=== PATIENT | female | born 1960 | race Caucasian/White ===

== ENCOUNTER → 2019-08-22 13:58 | Outpatient (CLI) | payer OTHER, SELFPAY ==
--- NOTE | 2019-08-22 14:12 | VDLE_ITS ---
Reason For Study: LLE pain RIGHT LEFT CFV is compressible, spontaneous, phasic, GSV is normal. competent and demonstrates normal CFV is compressible, spontaneous, phasic, augmentation. competent, and demonstrates normal Procedure augmentation. Exam performed in department. FV is compressible, spontaneous, phasic, The exam was diagnostic. competent and demonstrates normal A preliminary report was called and/or faxed augmentation. to Dr. Cooper @ 2:35 pm @ [phone]. POP V is compressible, spontaneous, phasic, competent and demonstrates normal augmentation. T/P Trunk is compressible. PTV is compressible. LT PerV is compressible. Interpretation Summary Deep veins of the left lower extremity are patent and compressible segmentally. There is no evidence of left lower extremity deep vein thrombosis. Valvular competence appears intact within the proximal deep venous system on the left . The left great saphenous vein appears patent and compressible segmentally. Ordering Physician: Molina Cooper Referring Physician: Molina Cooper Performed By: Lily Moser, RAD, RVT
== END ==
PROVIDERS: PCP Family Medicine; Referring Provider Family Medicine; Visit Provider Family Medicine
DX: M79.606 Pain in leg, unspecified (principal)
CPT/HCPCS: 93971

== ENCOUNTER → 2019-09-06 12:17 | Outpatient (CLI) | payer OTHER, SELFPAY ==
--- NOTE | 2019-09-06 12:20 | US_ITS ---
STUDY: THYROID ULTRASOUND REASON FOR EXAM: Female, 59 years old. THYROMEGALY TECHNIQUE: Ultrasound evaluation of the thyroid was performed with real-time and static dwyer-scale imaging. COMPARISON: None. FINDINGS: RIGHT LOBE: The right lobe of the thyroid gland measures 5.0 x 1.7 x 1.6 cm. There is a homogeneous echotexture. 4 mm colloid cyst in the right lobe. LEFT LOBE: The left lobe of the thyroid gland measures 4.5 x 1.5 x 1.6 cm. There is a homogeneous echotexture. 5 mm colloid cyst in the left lobe. ISTHMUS: The isthmus measures 3 mm thick. . The regional lymph nodes are normal. US/Thyroid IMPRESSION: Normal ultrasound examination of the thyroid. Electronically Signed: Giovani Diggs MD at 10:11 EST Tel , Service support ,
--- NOTE | 2019-09-06 12:44 | ECHOD_ITS ---
Reason For Study: MURMUR Procedure This was a 2D Doppler, Color Flow transthoracic echocardiogram. Exam performed in department. Left Ventricle Normal LV size. The estimated ejection fraction is 65 %. No evidence for diastolic dysfunction. No regional wall motion abnormalities noted. Right Ventricle Normal RV size. Normal systolic function. Atria Normal left atrium. Normal right atrium. No doppler evidence for ASD. Mitral Valve There is no mitral valve stenosis. No mitral valve insufficiency. Tricuspid Valve There is no tricuspid stenosis. Trivial tricuspid valve insufficiency. Pulmonary artery systolic pressure is 30 mmHg. Aortic Valve Trisinus/trileaflet aortic valve. Mild aortic stenosis. No aortic valve insufficiency. Pulmonic Valve There is no pulmonic valvular stenosis. No pulmonic valve insufficiency. Great Vessels Normal aortic root. Pericardium/Pleural No pericardial effusion. MMode/2D Measurements & Calculations LVIDd: 4.9 cm IVSd: 1.1 cm LVOT diam: 2.0 cm LVIDs: 3.1 cm LVPWd: 1.1 cm LVOT area: 3.1 cm2 RVDd: 3.0 cm FS: 36.2 % Ao root diam: 2.9 cm LAV(MOD-bp): 60.9 ml LA A4 area: 19.9 cm2 LAV(MOD-bp) Indexed: 29.4 ml/m2 LAV(MOD-sp2): 56.4 ml LAV(MOD-sp4): 56.4 ml LA dimension(2D): 3.7 cm RA A4 area: 15.7 cm2 Time Measurements MV dec time: 0.19 sec Doppler Measurements & Calculations MV E max ian: 89.1 cm/sec Lat Peak E' Ian: 8.3 cm/sec Med Peak E' Ian: 7.1 cm/sec MV A max ian: 102.5 cm/sec E/E' lat: 10.7 E/E' med: 12.5 MV E/A: 0.87 Ao V2 max: 218.4 cm/sec LV V1 max: 122.0 cm/sec SV(LVOT): 95.0 ml Ao max P.1 mmHg LV V1 max P.0 mmHg Ao V2 mean: 152.2 cm/sec LV V1 mean P.4 mmHg Ao mean P.2 mmHg LV V1 mean: 87.9 cm/sec Ao V2 VTI: 46.3 cm LV V1 VTI: 30.6 cm ABDIRAHMAN(I,D): 2.1 cm2 ABDIRAHMAN(V,D): 1.7 cm2 PA V2 max: 115.8 cm/sec TR max ian: 261.8 cm/sec TR max P.4 mmHg Interpretation Summary The estimated ejection fraction is 65 %. No evidence for diastolic dysfunction. Trivial tricuspid valve insufficiency. Mild aortic stenosis. Ordering Physician: Molina Cooper Referring Physician: Molina Cooper Performed By: Lily Moser, RAD, RVT
== END ==
PROVIDERS: PCP Family Medicine; Referring Provider Family Medicine; Visit Provider Family Medicine
DX: E04.9 Nontoxic goiter, unspecified (principal); R01.1 Cardiac murmur, unspecified
CPT/HCPCS: 76536; 93306

== ENCOUNTER → 2019-12-27 09:54 | Outpatient (CLI) | payer OTHER, SELFPAY ==
[2019-11-30 09:14] VITALS: BMI 37.3
[2019-12-27 12:34] LABS: Absolute Lymphocyte Count 2.11 X10^3/uL (0.83-4.51); Absolute Neutrophil Count 2.3 X10^3/uL (2.0-7.7); Basophil# 0.08 X10^3/uL; Basophil% 1.6 % (0-1); Eosinophil# 0.13 X10^3/uL; Eosinophils% 2.6 % (0-5); Hematocrit 47.6 % (37-47); Hemoglobin 15.9 g/dL (12.0-15.0); Lymphocyte # 2.11 X10^3/ul (4.0); Lymphocyte % 42.2 % (19-41); Mean Corp Hgb Conc 33.4 g/dL (32-36); Mean Corpuscular Hgb 31.5 pg (27.0-32.0); Mean Corpuscular Volume 94.3 fL (81-99); Mean Platelet Vol. 10.9 fl (6.2-12.0); Monocyte# 0.41 X10^3/uL; Monocyte% 8.2 % (0-10); NRBC Flagged by Analyzer 0 % (0-5); Neutrophil # 2.26 X10^3/uL (2.7-7.7); Neutrophil % 45.2 % (47-70); Platelet Count 263 K/mm3 (150-450); RBC Distribution Width CV 12.6 % (11.6-14.6); RBC Distribution Width SD 43.6 fl (35.1-43.9); Red Blood Count 5.05 M/mm3 (4.2-5.4)
[2019-12-27 13:02] LABS: ALB/GLOB Ratio 1.2 RATIO (0.9-2.4); AST(SGOT) 90 U/L (15-37); Alanine Aminotransfer ALT/SGPT 80 U/L (13-56); Alkaline Phosphatase 62 U/L (45-117); Anion Gap 6 (5-15); BUN 8 mg/dL (7-18); BUN/Creat Ratio 10.7 RATIO (10-20); Calcium,Total 8.9 mg/dL (8.5-10.1); Chloride 109 mmol/L (98-107); Cholesterol 134 mg/dL (200); Creatinine, Serum 0.75 mg/dL (0.55-1.02); EST Glomerular Filtration Rate 83 mL/min (>60); Est Glom Filt Rate - Afr Amer 101 mL/min (>60); Globulin 3.3 g/dL (2.2-4.2); Glucose 96 mg/dL (74-106); High Density Lipoprotein 39 mg/dL; Potassium 4.4 mmol/L (3.5-5.1); Protein, Total 7.3 g/dL (6.4-8.2); Sodium Level 143 mmol/L (136-145); T4 Free Direct 1.09 ng/dL (0.76-1.46); Thyroid Stim Hormone (TSH) 1.37 uIU/mL (0.358-3.74); Triglycerides 145 mg/dL; Very Low Density Lipoprotein 29 mg/dL (5-40)
== END ==
PROVIDERS: PCP Family Medicine; Referring Provider Family Medicine; Visit Provider Family Medicine
DX: E78.5 Hyperlipidemia, unspecified (principal); E04.1 Nontoxic single thyroid nodule; K21.9 Gastro-esophageal reflux disease without esophagitis
CPT/HCPCS: 36415; 80053; 80061; 84439; 84443; 85025

== ENCOUNTER 2019-12-28 06:56 | Day surgery (SDC) | payer OTHER, SELFPAY ==
[2019-11-30 09:14] VITALS: BMI 37.3
--- NOTE | 2019-11-30 09:48 | HP_ITS ---
ADDENDUM by Dr. Nj Mathur MD on 11/30/19 at 1036 Addendum entered and electronically signed by Nj Mathur MD 11/30/19 10:36: I now have records from [facility]. Dr. Janie Arguello. Colonoscopy March 08, 2012. Approximately 15 cm from the cecum small sessile polyp identified behind a fold. Was not able to actually sampled the area. Could not adequately cauterized the tissue. On March 28, 2014 a repeat attempt was made. This was an incomplete colonoscopy. Very tortuous colon. Preparation of the right colon was poor. No polyp could be easily seen. With a distant additional information will provide additional bowel prep with magnesium citrate 1 bottle to be taken 2 days preprocedure into the already prescribed bowel prep. Nj Mathur M.D., F.A.C.S. Intake Chief Complaint: c-scope/GERD Allergies aspirin Allergy (Severe, Verified 11/30/19 09:15) Anaphylaxis Medications atorvastatin 20 mg tablet 20 mg PO DAILY 11/30/19 [History Confirmed 11/30/19] ezetimibe 10 mg tablet 10 mg PO DAILY 11/30/19 [History Confirmed 11/30/19] famotidine 20 mg tablet 20 mg PO BID 11/30/19 [History Confirmed 11/30/19] omega-3 fatty acids 1,000 mg capsule 1,000 mg PO BID 11/30/19 [History Confirmed 11/30/19] Assessment & Plan Problems 1. Gastroesophageal reflux disease, esophagitis presence not specified K21.9 2. Personal history of colonic polyps Z86.010 Plan - Dr. Nj Mathur MD 59-year-old female with a long-term history of 20 years of GERD with no previous upper endoscopy. I recommend to her a esophagogastroduodenoscopy with possible biopsy or polypectomy as indicated. She is aware of the technique, benefit, risk, alternatives. She has had an opportunity to ask and have questions answered. Patient with a previous history of colon polyps. She states that she is known to have a difficult colonoscopy. Most recent exam 2013. She is not currently symptomatic. I recommend to her a colonoscopy with possible biopsy or polypectomy as indicated. She is aware of the technique, benefit, risk of alternatives. If she has a difficult colonoscopy I additionally discussed potential maneuvers including monitor anesthesia care that will be utilized. In addition we discussed the Covid-19 pandemic. The [facility] administration has suggested that there is a low incidence locally. The patient is aware of the risk with intervention during this time. She has had an opportunity to ask and have questions answered. She would like to schedule and proceed as noted. Cc: Dr Molina Mathur M.D., F.A.C.S. Orders Orders: Colonoscopy Today EGD Today 11/30/19 1036 <Electronically signed by Nj martel MD> Date _ Nj Mathur MD cc: Dr. Molina Cooper MD ~* Signed Intake Vital Signs 11/30/19 Height 5 ft 5 in 11/30/19 Weight: 224 lb 6 oz 11/30/19 BMI 37.3 11/30/19 BP 149/82 H 11/30/19 Blood Pressure Location Rt brachial 11/30/19 Position Sitting 11/30/19 Respiration 18 11/30/19 Pulse 67 11/30/19 Pulse Source Monitor 11/30/19 Temp 97.6 F L 11/30/19 Temp Source Oral 11/30/19 Pulse Oximetry (%) 96 11/30/19 Oxygen Delivery Method room air Intake Visit Reasons: CSCOPE and GERD Chief Complaint: c-scope/GERD [employer] Required: No Is patient in pain?: No Allergies aspirin Allergy (Severe, Verified 11/30/19 09:15) Anaphylaxis Medications atorvastatin 20 mg tablet 20 mg PO DAILY 11/30/19 [History Confirmed 11/30/19] ezetimibe 10 mg tablet 10 mg PO DAILY 11/30/19 [History Confirmed 11/30/19] famotidine 20 mg tablet 20 mg PO BID 11/30/19 [History Confirmed 11/30/19] omega-3 fatty acids 1,000 mg capsule 1,000 mg PO BID 11/30/19 [History Confirmed 11/30/19] [facility] Medical History (Updated 11/30/19 @ 09:[address] Nj Mathur MD) Personal history of colonic polyps (Acute) Gastroesophageal reflux disease (Acute) Arthritis (Acute) Hypercholesterolemia (Acute) Personal history of colonic polyps (Acute) Surgical History (Updated 11/30/19 @ 09:12 by Lily Dahl) History of discectomy (Acute) Family History (Updated 11/30/19 @ 09:13 by Lily Dahl) Mother Diabetes Heart disease Father Heart disease Factor 5 Leiden mutation, heterozygous Sister Factor 5 Leiden mutation, heterozygous Social History (Updated 11/30/19 @ 09:[address] Nj Mathur MD) Smoking Status: Former smoker alcohol intake: current alcohol intake frequency: a few times a month substance use type: does not use HPI HPI HPI: ZOILA SHAIKH, is a 59 F who presents to the office today for HPI HPI Surgical H&P: Yes HPI: ZOILA SHAIKH, is a 59 F who presents to the office today for surgical consultation regarding 20-year history of gastroesophageal reflux disease medication of dependent and a personal history of colon polyps. The patient is referred by her primary care physician Dr Molina Cooper and a written copy of my surgical consult recommendations will return to him. The patient states that she has had GERD for at least 20 years. She is currently managed with famotidine. She is absolutely medication dependent. She has the head of the bed elevated. She has never had an upper endoscopy. BMI is 37.3. She has a personal history of colon polyps. She states that she thinks she has had at least 3 previous colonoscopies. Her most recent colonoscopy was 2013. Apparently polyps have been identified on each occasion. In addition she was instructed by her endoscopist from [facility] that she had a difficult colonoscopy. She remembers awakening on 1 of them and feeling discomfort. She denies bright red blood per rectum or melena. No current abdominal pain. No unexpected weight loss. No family history of colon cancer ROS General General: No weight change, appetite, fatigue, colon cancer, breast cancer or weakness HEENT HEENT: No difficulty swallowing, eye injury, eye surgery, swollen glands or hoarseness Endo Endocrine: No thyroid disease, diabetes mellitus, thyroid cancer, Hair loss, heat intolerance or cold intolerance Skin Skin: No rash or changing moles Breast Breast: No left breast lump, right breast lump, nipple discharge, breast pain, abnormal mammogram, abnormal US or breast enlargement Musc Musculoskeletal: Yes arthritis; no back problems, rheumatoid arthritis, gout or joint pain Cardio Cardiovascular: Yes murmur; no pacemaker, heart disease, atrial fibrillation, high blood pressure, heart attack, heart stent, palpitations, shortness of breat with exertion or chest pain Additional Details: High Cholesterol Psych Psychiatric: No depression, anxiety or hearing voices Resp Respiratory: No shortness of breath, No sleep apnea, No cough, No COPD, No asthma, No emphysema, No wheezing Gastro Gastrointestinal: No abdominal pain, No nausea or vomiting, No diarrhea, No constipation, No blood in stool, No acid reflux, No hemorrhoids, No ulcers, No gallbladder problem, No black,tarry stools [place] Hematologic: No blood thinners, No blood disorders, No bleeding, No anemia, No blood clots Neuro Neurologic: No system reviewed and no additional complaints, except as docu, No as per HPI, No abnormal walking, No abnormal hearing, No abnormal movements, No abnormal speech, No behavioral changes, No burning sensations, No confusion, No seizure-like activity, No unsteadiness, No dizziness, No localized weakness, No frequent falls, No headache(s), No lack of coordination, No loss of vision, No memory loss, No numbness, No other visual disturbances, No radiating pain, No restless legs, No sensory deficit, No fainting, No tingling, No tremor(s), No weakness, No other Exam Const General: cooperative, comfortable, no acute distress Nutritional Appearance: obese Orientation: alert, awake [facility] Head: normal to inspection Eyes General: appearance normal, both eyes and all related structures Chest Breast Palpation: No nipple discharge Resp Effort & Inspection: normal respiratory effort Auscultation: clear to auscultation bilaterally Cardio Rate: regular rate Rhythm: regular rhythm Heart Sounds: murmur GI Palpation: soft, no hepatosplenomegaly Auscultation: normal bowel sounds Neuro General: alert Extrem General: no calf tenderness Psych Affect: normal affect Assessment & Plan Problems 1. Gastroesophageal reflux disease, esophagitis presence not specified K21.9 2. Personal history of colonic polyps Z86.010 Plan 59-year-old female with a long-term history of 20 years of GERD with no previous upper endoscopy. I recommend to her a esophagogastroduodenoscopy with possible biopsy or polypectomy as indicated. She is aware of the technique, benefit, risk, alternatives. She has had an opportunity to ask and have questions answered. Patient with a previous history of colon polyps. She states that she is known to have a difficult colonoscopy. Most recent exam 2013. She is not currently symptomatic. I recommend to her a colonoscopy with possible biopsy or polypectomy as indicated. She is aware of the technique, benefit, risk of alternatives. If she has a difficult colonoscopy I additionally discussed potential maneuvers including monitor anesthesia care that will be utilized. In addition we discussed the Covid-19 pandemic. The [facility] administration has suggested that there is a low incidence locally. The patient is aware of the risk with intervention during this time. She has had an opportunity to ask and have questions answered. She would like to schedule and proceed as noted. Cc: Dr Molina Mathur M.D., F.A.C.S. Coding Level of Care Code 02526 Diagnoses Gastroesophageal reflux disease, esophagitis presence not specified K21.9 ??Esophagitis presence: esophagitis presence not specified Personal history of colonic polyps Z86.010 11/30/19 0948 <Electronically signed by Nj martel MD> Date _ Nj Mathur MD
--- NOTE | 2019-12-28 | GASB_PTH ---
PATIENT: ZOILA SHAIKH LOC: EN U#:[id number] AGE/SX: 59/F ROOM: RE12/28/[address]: Dr. Nj Mathur MD : 1960 BED: DIS: 12/28/2019 SPEC #: [id number] RECD: 12/28/19 12:36 STATUS: NIRMAL LUDY #: [id number] RAFFI: 12/28/19 00:[address]: Nj Mathur DEPT: SURGICAL PATHOLOGY RECD BY: Everette Wellington ENTERED: 12/31/19 09:43 SP TYPE: Gastric Bx OTHR DR: Dr. Molina Cooper MD Tissues: A - Gastric mucous membrane B - Esophagus, NOS Procedures: Surgery Specimen Level IV HEADER OPERATION: Colonoscopy, EGD ([facility]) PRE-OP DIAGNOSIS: GERD, colonic polyps TISSUE SUBMITTED: A - Antrum biopsy for histo and H. pylori, B - Distal esophagus biopsy MICROSCOPIC DIAGNOSIS A. Gastric antrum, biopsy: Chronic gastritis. See comment. B. Distal esophagus, biopsy: Strips of benign squamous mucosa. No evidence of inflammation. AM:sravan 01/01/20 COMMENT A. The results of immunohistochemistry for Helicobacter pylori will be reported separately ([id number]). MICROSCOPIC DESCRIPTION Slides are reviewed. GROSS DESCRIPTION A - Received in fixative is one container labeled with the patient's name and designated antrum biopsy. The specimen consists of one irregular fragment of light krishnamurthy soft tissue that measures 0.5 x 0.5 x 0.1 cm. The specimen is totally submitted in one cassette. B - Received in fixative is one container labeled with the patient's name and designated distal esophagus biopsy. The specimen consists of two irregular fragments of light krishnamurthy soft tissue that in aggregate measure 0.7 x 0.6 x 0.1 cm. The specimen is totally submitted in one cassette. / AM:sravan 12/31/19 TC:3 CPT: 48812 x2
[2019-12-28 07:24] VITALS: BP 143/68; PULSE 57; RESP 16; TEMP 35.9; O2SAT 97; BMI 36.1
[2019-12-28] MEDS: Lactated Ringers 1,000 ML 100 ML IV (07:35)
--- NOTE | 2019-12-28 07:36 | HP.PCM_ITS ---
Problem List (1) Personal history of colonic polyps Status: Acute (2) Gastroesophageal reflux disease Status: Acute Qualifiers: History and Physical Date of Admission: 12/28/[address] Nj Mathur MD on 11/30/19 at 1729 Addendum entered and electronically signed by Nj Mathur MD 11/30/19 17:29: Bilateral carotid bruits were detected on today's examination. The patient also has a 2/6 systolic ejection murmur. She states that she is known about that. I do recommend carotid duplex imaging. Nj Mathur M.D., F.A.C.S. Intake Chief Complaint: c-scope/GERD Allergies aspirin Allergy (Severe, Verified 11/30/19 09:15) Anaphylaxis Medications atorvastatin 20 mg tablet 20 mg PO DAILY 11/30/19 history Confirmed 11/30/19 ezetimibe 10 mg tablet 10 mg PO DAILY 11/30/19 history Confirmed 11/30/19 famotidine 20 mg tablet 20 mg PO BID 11/30/19 history Confirmed 11/30/19 omega-3 fatty acids 1,000 mg capsule 1,000 mg PO BID 11/30/19 history Confirmed 11/30/19 Assessment & Plan Problems 1. Gastroesophageal reflux disease, esophagitis presence not specified K21.9 2. Personal history of colonic polyps Z86.010 Plan - Dr. Nj Mathur MD 59-year-old female with a long-term history of 20 years of GERD with no previous upper endoscopy. I recommend to her a esophagogastroduodenoscopy with possible biopsy or polypectomy as indicated. She is aware of the technique, benefit, risk, alternatives. She has had an opportunity to ask and have questions answered. Patient with a previous history of colon polyps. She states that she is known to have a difficult colonoscopy. Most recent exam 2013. She is not currently symptomatic. I recommend to her a colonoscopy with possible biopsy or polypectomy as indicated. She is aware of the technique, benefit, risk of alternatives. If she has a difficult colonoscopy I additionally discussed potential maneuvers including monitor anesthesia care that will be utilized. In addition we discussed the Covid-19 pandemic. The [facility] administration has suggested that there is a low incidence locally. The patient is aware of the risk with intervention during this time. She has had an opportunity to ask and have questions answered. She would like to schedule and proceed as noted. Cc: Dr Molina Mathur M.D., F.A.C.S. Orders Orders: Colonoscopy Today EGD Today 11/30/19 1729 <Electronically signed by Nj martel MD> Date _ Nj Mathur MD cc: Dr. Molina Cooper MD ~* Signed ADDENDUM by Dr. Nj Mathur MD on 11/30/19 at 1036 Addendum entered and electronically signed by Nj Mathur MD 11/30/19 10:36: I now have records from [facility]. Dr. Janie Arguello. Colonoscopy March 08, 2012. Approximately 15 cm from the cecum small sessile polyp identified behind a fold. Was not able to actually sampled the area. Could not adequately cauterized the tissue. On March 28, 2014 a repeat attempt was made. This was an incomplete colonoscopy. Very tortuous colon. Preparation of the right colon was poor. No polyp could be easily seen. With a distant additional information will provide additional bowel prep with magnesium citrate 1 bottle to be taken 2 days preprocedure into the already prescribed bowel prep. Nj Mathur M.D., F.A.C.S. Intake Chief Complaint: c-scope/GERD Allergies aspirin Allergy (Severe, Verified 11/30/19 09:15) Anaphylaxis Medications atorvastatin 20 mg tablet 20 mg PO DAILY 11/30/19 history Confirmed 11/30/19 ezetimibe 10 mg tablet 10 mg PO DAILY 11/30/19 history Confirmed 11/30/19 famotidine 20 mg tablet 20 mg PO BID 11/30/19 history Confirmed 11/30/19 omega-3 fatty acids 1,000 mg capsule 1,000 mg PO BID 11/30/19 history Confirmed 11/30/19 Assessment & Plan Problems 1. Gastroesophageal reflux disease, esophagitis presence not specified K21.9 2. Personal history of colonic polyps Z86.010 Plan - Dr. Nj Mathur MD 59-year-old female with a long-term history of 20 years of GERD with no previous upper endoscopy. I recommend to her a esophagogastroduodenoscopy with possible biopsy or polypectomy as indicated. She is aware of the technique, benefit, risk, alternatives. She has had an opportunity to ask and have questions answered. Patient with a previous history of colon polyps. She states that she is known to have a difficult colonoscopy. Most recent exam 2013. She is not currently symptomatic. I recommend to her a colonoscopy with possible biopsy or polypectomy as indicated. She is aware of the technique, benefit, risk of alternatives. If she has a difficult colonoscopy I additionally discussed potential maneuvers including monitor anesthesia care that will be utilized. In addition we discussed the Covid-19 pandemic. The [facility] administration has suggested that there is a low incidence locally. The patient is aware of the risk with intervention during this time. She has had an opportunity to ask and have questions answered. She would like to schedule and proceed as noted. Cc: Dr Molina Mathur M.D., F.A.C.S. Orders Orders: Colonoscopy Today EGD Today 11/30/19 1036 <Electronically signed by Nj martel MD> Date _ Nj Mathur MD cc: Dr. Molina Cooper MD ~* Signed Intake Vital Signs 11/30/19 Height 5 ft 5 in 11/30/19 Weight: 224 lb 6 oz 11/30/19 BMI 37.3 11/30/19 BP 149/82 H 11/30/19 Blood Pressure Location Rt brachial 11/30/19 Position Sitting 11/30/19 Respiration 18 11/30/19 Pulse 67 11/30/19 Pulse Source Monitor 11/30/19 Temp 97.6 F L 11/30/19 Temp Source Oral 11/30/19 Pulse Oximetry (%) 96 11/30/19 Oxygen Delivery Method room air Intake Visit Reasons: CSCOPE and GERD Chief Complaint: c-scope/GERD Software Product Manager Required: No Is patient in pain?: No Allergies aspirin Allergy (Severe, Verified 11/30/19 09:15) Anaphylaxis Medications atorvastatin 20 mg tablet 20 mg PO DAILY 11/30/19 history Confirmed 11/30/19 ezetimibe 10 mg tablet 10 mg PO DAILY 11/30/19 history Confirmed 11/30/19 famotidine 20 mg tablet 20 mg PO BID 11/30/19 history Confirmed 11/30/19 omega-3 fatty acids 1,000 mg capsule 1,000 mg PO BID 11/30/19 history Confirmed 11/30/19 [facility] Medical History (Updated 11/30/19 @ 09:[address] Nj Mathur MD) Personal history of colonic polyps (Acute) Gastroesophageal reflux disease (Acute) Arthritis (Acute) Hypercholesterolemia (Acute) Personal history of colonic polyps (Acute) Surgical History (Updated 11/30/19 @ 09:12 by Lily Dahl) History of discectomy (Acute) Family History (Updated 11/30/19 @ 09:13 by Lily Dahl) Mother Diabetes Heart disease Father Heart disease Factor 5 Leiden mutation, heterozygous Sister Factor 5 Leiden mutation, heterozygous Social History (Updated 11/30/19 @ 09:[address] Nj Mathur MD) Smoking Status: Former smoker alcohol intake: current alcohol intake frequency: a few times a month substance use type: does not use HPI HPI HPI: ZOILA SHAIKH, is a 59 F who presents to the office today for HPI HPI Surgical H&P: Yes HPI: ZOILA SHAIKH, is a 59 F who presents to the office today for surgical consultation regarding 20-year history of gastroesophageal reflux disease medication of dependent and a personal history of colon polyps. The patient is referred by her primary care physician Dr Molina Cooper and a written copy of my surgical consult recommendations will return to him. The patient states that she has had GERD for at least 20 years. She is currently managed with famotidine. She is absolutely medication dependent. She has the head of the bed elevated. She has never had an upper endoscopy. BMI is 37.3. She has a personal history of colon polyps. She states that she thinks she has had at least 3 previous colonoscopies. Her most recent colonoscopy was 2013. Apparently polyps have been identified on each occasion. In addition she was instructed by her endoscopist from [facility] that she had a difficult colonoscopy. She remembers awakening on 1 of them and feeling discomfort. She denies bright red blood per rectum or melena. No current abdominal pain. No unexpected weight loss. No family history of colon cancer ROS General General: No weight change, appetite, fatigue, colon cancer, breast cancer or weakness HEENT HEENT: No difficulty swallowing, eye injury, eye surgery, swollen glands or hoarseness Endo Endocrine: No thyroid disease, diabetes mellitus, thyroid cancer, Hair loss, heat intolerance or cold intolerance Skin Skin: No rash or changing moles Breast Breast: No left breast lump, right breast lump, nipple discharge, breast pain, abnormal mammogram, abnormal US or breast enlargement Musc Musculoskeletal: Yes arthritis; no back problems, rheumatoid arthritis, gout or joint pain Cardio Cardiovascular: Yes murmur; no pacemaker, heart disease, atrial fibrillation, high blood pressure, heart attack, heart stent, palpitations, shortness of breat with exertion or chest pain Additional Details: High Cholesterol Psych Psychiatric: No depression, anxiety or hearing voices Resp Respiratory: No shortness of breath, No sleep apnea, No cough, No COPD, No asthma, No emphysema, No wheezing Gastro Gastrointestinal: No abdominal pain, No nausea or vomiting, No diarrhea, No constipation, No blood in stool, No acid reflux, No hemorrhoids, No ulcers, No gallbladder problem, No black,tarry stools [place] Hematologic: No blood thinners, No blood disorders, No bleeding, No anemia, No blood clots Neuro Neurologic: No system reviewed and no additional complaints, except as docu, No as per HPI, No abnormal walking, No abnormal hearing, No abnormal movements, No abnormal speech, No behavioral changes, No burning sensations, No confusion, No seizure-like activity, No unsteadiness, No dizziness, No localized weakness, No frequent falls, No headache(s), No lack of coordination, No loss of vision, No memory loss, No numbness, No other visual disturbances, No radiating pain, No restless legs, No sensory deficit, No fainting, No tingling, No tremor(s), No weakness, No other Exam Const General: cooperative, comfortable, no acute distress Nutritional Appearance: obese Orientation: alert, awake [facility] Head: normal to inspection Eyes General: appearance normal, both eyes and all related structures Chest Breast Palpation: No nipple discharge Resp Effort & Inspection: normal respiratory effort Auscultation: clear to auscultation bilaterally Cardio Rate: regular rate Rhythm: regular rhythm Heart Sounds: murmur GI Palpation: soft, no hepatosplenomegaly Auscultation: normal bowel sounds Neuro General: alert Extrem General: no calf tenderness Psych Affect: normal affect Assessment & Plan Problems 1. Gastroesophageal reflux disease, esophagitis presence not specified K21.9 2. Personal history of colonic polyps Z86.010 Plan 59-year-old female with a long-term history of 20 years of GERD with no previous upper endoscopy. I recommend to her a esophagogastroduodenoscopy with possible biopsy or polypectomy as indicated. She is aware of the technique, benefit, risk, alternatives. She has had an opportunity to ask and have questions answered. Patient with a previous history of colon polyps. She states that she is known to have a difficult colonoscopy. Most recent exam 2013. She is not currently symptomatic. I recommend to her a colonoscopy with possible biopsy or polypectomy as indicated. She is aware of the technique, benefit, risk of alternatives. If she has a difficult colonoscopy I additionally discussed potential maneuvers including monitor anesthesia care that will be utilized. In addition we discussed the Covid-19 pandemic. The [facility] administration has suggested that there is a low incidence locally. The patient is aware of the risk with intervention during this time. She has had an opportunity to ask and have questions answered. She would like to schedule and proceed as noted. Cc: Dr Molina Mathur M.D., F.A.C.S. Coding Level of Care Code 20863 Diagnoses Gastroesophageal reflux disease, esophagitis presence not specified K21.9 ??Esophagitis presence: esophagitis presence not specified Personal history of colonic polyps Z86.010 11/30/19 0948 <Electronically signed by Nj martel MD> Date _ Nj Mathru MD I have re-examined the patient. There are no clinical changes since date of exam. Procedure Criteria Procedure Type: Elective COVID Risk Discussion: The surgeon/proceduralist and patient have discussed in detail the risk of exposure to and/or potential harm posed by the COVID-19 virus with having a surgery/procedure at this time versus the risk of delaying the surgery/procedure . It is not possible to know either the risk of delaying the surgery or procedure or chance of getting an infection with perfect accuracy, but a joint decision was made between the patient and the surgeon/proceduralist to proceed at this time with the scheduled surgery/procedure as indicated on the consent form.
--- NOTE | 2019-12-28 08:00 | IMM_PTH ---
PATIENT: ZOILA SHAIKH LOC: EN U#:[id number] AGE/SX: 59/F ROOM: RE12/28/[address]: Dr. Nj Mathur MD : 1960 BED: DIS: 12/28/2019 SPEC #: [id number] RECD: 12/31/19 12:23 STATUS: NIRMAL REMarylin #: [id number] RAFFI: 12/28/19 08:[address]: Nj Mathur DEPT: IMMUNOHISTOCHEMISTRY RECD BY: Jennifer Lassiter ENTERED: 12/31/19 12:23 SP TYPE: IMMUNO OTHR DR: Dr. Molina Cooper MD Tissues: A - Stomach, NOS Procedures: H Pylori (initial) PHYSICIAN & INSTITUTION [place] [address] SPECIMEN INFORMATION: Tissue Source: A - Antrum biopsy Clinical Info: GERD, colonic polyps Specimen Number: [id number] CPT code: 76085 METHODOLOGY: Deparaffinized sections of prefer/formalin-fixed tissue or PAP/DQ stained slides are incubated with monoclonal/polyclonal antibodies/oligonucleotide probes. Localization is made via biotin free immunoperoxidase method. Appropriate controls are performed and reacted as expected. Results on target cell population are indicated in the following table: RESULTS: ANTIBODY / CLONE RESULT Block A H Pylori (polyclonal) negative These tests were developed and their performance characteristics determined by [facility]. They may not have been cleared or approved by the U.S. Food and Drug Administration. The FDA has determined that such clearance or approval is not necessary. INTERPRETATION: A. Antrum biopsy: Negative for Helicobacter pylori organisms. AM:sravan 01/01/20
--- NOTE | 2019-12-28 08:54 | OP.EGD_ITS ---
Patient Name: Maria Victoria Rueda Procedure Date: 12/28/2019 8:15 AM Date of : 1960 Age: 59 Procedure: Upper GI endoscopy Indications: Suspected gastro-esophageal reflux disease Providers: Nj Mathur MD Referring MD: Molina Cooper Medicines: See the Anesthesia note for documentation of the administered medications Complications: No immediate complications. Procedure: Pre-Anesthesia Assessment: - Prior to the procedure, a History and Physical was performed, and patient medications and allergies were reviewed. The patient's tolerance of previous anesthesia was also reviewed. The risks and benefits of the procedure and the sedation options and risks were discussed with the patient. All questions were answered, and informed consent was obtained. Prior Anticoagulants: The patient has taken no previous anticoagulant or antiplatelet agents. ASA Grade Assessment: II - A patient with mild systemic disease. After reviewing the risks and benefits, the patient was deemed in satisfactory condition to undergo the procedure. After obtaining informed consent, the endoscope was passed under direct vision. Throughout the procedure, the patient's blood pressure, pulse, and oxygen saturations were monitored continuously. The gastroscope was introduced through the mouth, and advanced to the second part of duodenum. The upper GI endoscopy was accomplished without difficulty. The patient tolerated the procedure well. Scope In: 8:23:54 AM Scope Out: 8:29:36 AM Total Procedure Duration Time 0 hours 5 minutes 42 seconds Findings: Esophagitis with no bleeding was found 40 cm from the incisors. Biopsies were taken with a cold forceps for histology. A small hiatal hernia was present. Diffuse mildly erythematous mucosa without bleeding was found in the gastric antrum. Biopsies were taken with a cold forceps for histology. The examined duodenum was normal. Impression: - Reflux esophagitis. Biopsied. - Small hiatal hernia. - Erythematous mucosa in the antrum. Biopsied. - Normal examined duodenum. Recommendation: - Discharge patient to home. - Resume previous diet. - Continue present medications. - Telephone my office for pathology results in 1 week. Procedure Code(s): --- Professional --- 65437, Esophagogastroduodenoscopy, flexible, transoral; with biopsy, single or multiple Diagnosis Code(s): --- Professional --- K21.0, Gastro-esophageal reflux disease with esophagitis K44.9, Diaphragmatic hernia without obstruction or gangrene K31.89, Other diseases of stomach and duodenum CPT copyright 2017 [employer]. All rights reserved. The codes documented in this report are preliminary and upon electrical repairer review may be revised to meet current compliance requirements. Nj Mathur MD 12/28/2019 8:54:01 AM This report has been signed electronically. Number of Addenda: 0 Note Initiated On: 12/28/2019 8:15 AM
--- NOTE | 2019-12-28 08:54 | OP.CCLET_ITS ---
12/28/2019 Molina Cooper [address] [place] [address] Re : Upper GI endoscopy procedure for Maria Victoria Rueda Dear Dr. Cooper This procedure was performed on Saturday, December 28, 2019. My impressions and recommendations are as follows: Impressions : - Reflux esophagitis. Biopsied. - Small hiatal hernia. - Erythematous mucosa in the antrum. Biopsied. - Normal examined duodenum. Recommendations : - Discharge patient to home. - Resume previous diet. - Continue present medications. - Telephone my office for pathology results in 1 week. My findings are described in the full procedure note, which is enclosed. If I can be of further assistance, please feel free to contact me at Doctor phone number(s): Work: . Sincerely, Nj Mathur MD 12/28/2019 8:54:01 AM This report has been signed electronically.
[2019-12-28 08:55] VITALS: BP 126/67; BP 143/68; PULSE 57; RESP 18; TEMP 36.6; O2SAT 98
--- NOTE | 2019-12-28 08:57 | OP.COLON_ITS ---
Patient Name: Maria Victoria Rueda Procedure Date: 12/28/2019 8:30 AM Date of : 1960 Age: 59 Procedure: Colonoscopy Indications: High risk colon cancer surveillance: Personal history of colonic polyps Providers: Nj Mathur MD Referring MD: Molina Cooper Medicines: See the Anesthesia note for documentation of the administered medications Patient Profile: Last Colonoscopy: 2013. Complications: No immediate complications. Procedure: Pre-Anesthesia Assessment: - Prior to the procedure, a History and Physical was performed, and patient medications and allergies were reviewed. The patient's tolerance of previous anesthesia was also reviewed. The risks and benefits of the procedure and the sedation options and risks were discussed with the patient. All questions were answered, and informed consent was obtained. Prior Anticoagulants: The patient has taken no previous anticoagulant or antiplatelet agents. ASA Grade Assessment: II - A patient with mild systemic disease. After reviewing the risks and benefits, the patient was deemed in satisfactory condition to undergo the procedure. After I obtained informed consent, the scope was passed under direct vision. Throughout the procedure, the patient's blood pressure, pulse, and oxygen saturations were monitored continuously. The adult colonoscope was introduced through the anus and advanced to the cecum, identified by appendiceal orifice and ileocecal valve. The colonoscopy was performed without difficulty. The patient tolerated the procedure well. The quality of the bowel preparation was good. The ileocecal valve and the appendiceal orifice were photographed. Scope In: 8:32:02 AM Scope Withdrawal Time 0 hours 9 minutes 55 seconds Scope Out: 8:48:52 AM Total Procedure Duration Time 0 hours 16 minutes 50 seconds Findings: The digital rectal exam findings include non-thrombosed external hemorrhoids, non-thrombosed internal hemorrhoids and internal hemorrhoids that prolapse with straining, but spontaneously regress to the resting position (Grade II). Lax anal tone noted. Scattered diverticula were found in the sigmoid colon and descending colon. The colon (entire examined portion) was moderately tortuous. Advancing the scope required using manual pressure. Impression: - Non-thrombosed external hemorrhoids, non-thrombosed internal hemorrhoids and internal hemorrhoids that prolapse with straining, but spontaneously regress to the resting position (Grade II) found on digital rectal exam. - Diverticulosis in the sigmoid colon and in the descending colon. - Tortuous colon. - No specimens collected. Recommendation: - Discharge patient to home. - Resume previous diet. - Continue present medications. - Repeat colonoscopy in 10 years for screening purposes. Procedure Code(s): --- Professional --- 92107, Colonoscopy, flexible; diagnostic, including collection of specimen(s) by brushing or washing, when performed (separate procedure) Diagnosis Code(s): --- Professional --- Z86.010, Personal history of colonic polyps K64.1, Second degree hemorrhoids K64.4, Residual hemorrhoidal skin tags K57.30, Diverticulosis of large intestine without perforation or abscess without bleeding Q43.8, Other specified congenital malformations of intestine CPT copyright 2017 [employer]. All rights reserved. The codes documented in this report are preliminary and upon director of curriculum review may be revised to meet current compliance requirements. Nj Mathur MD 12/28/2019 8:57:04 AM This report has been signed electronically. Number of Addenda: 0 Note Initiated On: 12/28/2019 8:30 AM
--- NOTE | 2019-12-28 08:57 | OP.CCLET_ITS ---
12/28/2019 Molina Cooper [address] [place] [address] Re : Colonoscopy procedure for Maria Victoria Rueda Dear Dr. Cooper This procedure was performed on Saturday, December 28, 2019. My impressions and recommendations are as follows: Impressions : - Non-thrombosed external hemorrhoids, non-thrombosed internal hemorrhoids and internal hemorrhoids that prolapse with straining, but spontaneously regress to the resting position (Grade II) found on digital rectal exam. - Diverticulosis in the sigmoid colon and in the descending colon. - Tortuous colon. - No specimens collected. Recommendations : - Discharge patient to home. - Resume previous diet. - Continue present medications. - Repeat colonoscopy in 10 years for screening purposes. My findings are described in the full procedure note, which is enclosed. If I can be of further assistance, please feel free to contact me at Doctor phone number(s): Work: . Sincerely, Nj Mathur MD 12/28/2019 8:57:04 AM This report has been signed electronically.
[2019-12-28 09:00] VITALS: BP 117/72; BP 143/68; PULSE 59; RESP 18; O2SAT 98
[2019-12-28 09:05] VITALS: BP 124/66; BP 143/68; PULSE 60; RESP 18; O2SAT 100
[2019-12-28 09:10] VITALS: BP 130/65; BP 143/68; PULSE 55; RESP 18; TEMP 36.6; O2SAT 97
[2019-12-28 09:24] VITALS: BP 143/68
== END 2019-12-28 09:47 | disposition home or self-care (01) ==
LOC: EN 06:57 → AC 06:59
PROVIDERS: Anesthesiology; PCP Family Medicine; Referring Provider Family Medicine; Visit Provider Surgery
PROC: 0DJD8ZZ Inspection of Lower Intestinal Tract, Via Natural or Artificial Opening Endoscopic (ICD-10-PCS; CPT 45378; principal; 2019-12-28 07:55)
DX: K29.50 Unspecified chronic gastritis without bleeding (principal); K21.0 Gastro-esophageal reflux disease with esophagitis; K44.9 Diaphragmatic hernia without obstruction or gangrene; K57.30 Diverticulosis of large intestine without perforation or abscess without bleeding; K64.1 Second degree hemorrhoids; K64.4 Residual hemorrhoidal skin tags; Q43.8 Other specified congenital malformations of intestine; Z86.010 Personal history of colon polyps; Z11.59 Encounter for screening for other viral diseases; M19.90 Unspecified osteoarthritis, unspecified site; E78.00 Pure hypercholesterolemia, unspecified; Z78.0 Asymptomatic menopausal state; Z87.442 Personal history of urinary calculi; Z79.899 Other long term (current) drug therapy; Z87.891 Personal history of nicotine dependence
CPT/HCPCS: 43239; 45378; 87635; 88305; 88342; G2023; J7120; J2405; U0003

== ENCOUNTER → 2020-01-08 08:03 | Outpatient (CLI) | payer OTHER, SELFPAY ==
[2019-12-28 07:24] VITALS: BMI 36.1
--- NOTE | 2020-01-08 08:04 | CDU_ITS ---
Reason For Study: BILATERAL CAROTID BRUITS Rt. Velocities/BP Lt. Velocities/BP Prox CCA 118.5/19.9 cm/sec. Prox CCA 94.0/20.4 cm/sec. Mid CCA 87.9/19.2 cm/sec. Mid CCA 85.3/17.1 cm/sec. Dist CCA 70.7/15.5 cm/sec. Dist CCA 67.7/20.4 cm/sec. Prox ICA 83.0/16.47 cm/sec. Prox ICA 83.1/19.3 cm/sec. Mid ICA 106.4/36.4 cm/sec. Mid ICA 109.4/43.7 cm/sec. Dist ICA 100.4/36.3 cm/sec. Dist ICA 124.0/43.7 cm/sec. Rt. ICA/CCA = 106.4/118.5=0.9. Lt. ICA/CCA = 124.0/94.0=1.3. Prox ECA 87.9/8.1 cm/sec. Prox ECA 60.0/7.3 cm/sec. Rt. Vert. 56.6/14.1 cm/sec. Lt. Vert. 48.3/14.2 cm/sec. Right Extracranial There is intimal thickening but no significant atherosclerotic plaque noted in the right common carotid artery. There is intimal thickening but no significant atherosclerotic plaque noted in the right internal carotid artery. There is intimal thickening but no significant atherosclerotic plaque noted in the right external carotid artery. Antegrade flow is noted in the right vertebral artery. Left Extracranial There is no significant atherosclerotic plaque noted in the left common carotid artery. There is intimal thickening but no significant atherosclerotic plaque noted in the left internal carotid artery. The tortuous nature of the distal left internal carotid artery may result in flow velocities overestimating the degree of stenosis. There is intimal thickening but no significant atherosclerotic plaque noted in the left external carotid artery. Antegrade flow is noted in the left vertebral artery. Procedure Carotid Duplex [id number]. The exam was diagnostic. Exam performed in department. Interpretation Summary No hemodynamically significant plaque or stenosis right extracranial internal carotid artery with less than 50% stenosis. <50% stenosis right external carotid Intimal thickening and tortuosity of the left internal carotid with less than 50% stenosis <50% stenosis left external carotid Patent, antegrade vertebrals bilaterally Ordering Physician: Nj Mathur Referring Physician: Molina Cooper Performed By: Lily Moser, RAD, RVT
[2020-01-08 15:28] LABS: Absolute Lymphocyte Count 2.17 X10^3/uL (0.83-4.51); Basophil# 0.06 X10^3/uL; Basophil% 1.3 % (0-1); Eosinophil# 0.16 X10^3/uL; Eosinophils% 3.3 % (0-5); Hematocrit 44.5 % (37-47); Hemoglobin 14.8 g/dL (12.0-15.0); Lymphocyte # 2.17 X10^3/ul (4.0); Lymphocyte % 45.2 % (19-41); Mean Corp Hgb Conc 33.3 g/dL (32-36); Mean Corpuscular Hgb 31.5 pg (27.0-32.0); Mean Corpuscular Volume 94.7 fL (81-99); Mean Platelet Vol. 11.4 fl (6.2-12.0); Monocyte# 0.38 X10^3/uL; Monocyte% 7.9 % (0-10); NRBC Flagged by Analyzer 0 % (0-5); Neutrophil # 2.02 X10^3/uL (2.7-7.7); Neutrophil % 42.1 % (47-70); Platelet Count 223 K/mm3 (150-450); RBC Distribution Width CV 12.7 % (11.6-14.6); RBC Distribution Width SD 43.4 fl (35.1-43.9); White Blood Count 4.8 K/mm3 (4.4-11.0)
[2020-01-08 15:56] LABS: AST(SGOT) 87 U/L (15-37); Alanine Aminotransfer ALT/SGPT 70 U/L (13-56); Albumin, Serum 3.9 g/dL (3.2-5.0); Alkaline Phosphatase 59 U/L (45-117); Bilirubin, Direct 0.34 mg/dL (0.00-0.30); Ferritin 349 ng/mL (8-252); Globulin 3.1 g/dL (2.2-4.2); Iron 90 ug/dL (50-170); Iron Binding Capacity,Total 304 ug/dL (250-450)
[2020-01-10 05:27] LABS: Transferrin 235 mg/dL (192-364)
== END ==
PROVIDERS: PCP Family Medicine; Referring Provider Surgery; Visit Provider Surgery
DX: R09.89 Other specified symptoms and signs involving the circulatory and respiratory systems (principal); E80.6 Other disorders of bilirubin metabolism; D75.1 Secondary polycythemia
CPT/HCPCS: 36415; 80076; 82728; 83540; 83550; 84466; 85025; 93880